=== PATIENT | female | born 1970 | race Caucasian/White ===

== ENCOUNTER 2025-01-03 01:01 | Day surgery (SDC) | payer OTHER, SELFPAY ==
[2024-12-26 10:47] VITALS: BMI 34.2
--- NOTE | 2024-12-26 10:54 | PC.NURSE ---
Report to the Outpatient Waiting Room, entrance under the green pavilion located off [facility], at time _0745__ on date _01/03/25_. Planned Procedure Time: _0945_.? Time changes happen often and if your time is changed the preop area will call you the afternoon before. - You and your visitor will be asked to self-screen and do not enter if you have any COVID symptoms. Please call surgeon if you need to reschedule. - A mask is optional within the hospital at this time. Patients may have clear liquids (water, carbonated beverages, clear teas, apple juice) until 3 hours prior to surgery with a maximum of 20 ounces. - No food from midnight until time of surgery and no smoking, or chewing tobacco (or any form of nicotine). No chewing gum, candy or mints. - Infants may have breast milk until 4 hours before surgery, infant formula 6 hours prior to surgery. - Children will be allowed to drink immediately following surgery.? If applicable, please bring a bottle or sippy cup to assist with drinking. Juice, water, soda, and popsicles are readily available.? For infants on formula, please bring formula the day of surgery.? Pacifiers are allowed. Take only the following medications with a SIP of water on the morning of surgery: ____NONE DO NOT STOP ANY OF YOUR OTHER PRESCRIPTION MEDICATIONS PRIOR TO SURGERY EXCEPT THE FOLLOWING Hold all vitamins and supplements for 3 days per anesthesiologist. Medications to discontinue per physician Date to take last dose Please no make-up, nail citizen of [place], hairspray, perfume, deodorant, or body powder the day of surgery.? No jewelry (including any body piercings) or valuables the day of surgery, leave them at home.? Please take a shower or bath the night before, or the morning of, surgery with an antibacterial soap.? Wear comfortable, loose fitting clothing.? Children are encouraged to wear pajamas. - Jewelry must be removed prior to entering the operating room.? Rings and piercings that are not removed may be cut off. - The hospital will not accept responsibility for valuables.? - Please leave all valuables, including medications, at home the day of surgery. If you are going home after surgery, a licensed pizza driver must drive you home.? - NO public transportation without another adult if you receive anesthesia. - We recommend that an adult stay with you for 24 hours following discharge. - We also recommend that you do not drive, make important decision, drink alcoholic beverages, or take any drugs that were not prescribed by your health care provider for at least 24 hours after your discharge time. For Pediatric surgeries, we recommend two adults accompany the child home. Follow any additional instructions given to you from your surgeon. Telephone instructions given to ___PATIENT__and asked if any additional questions and then verbalized understanding. Patient advised to call surgeon office or pre surgery nurse liaison [phone] if any additional questions.
--- NOTE | 2024-12-29 20:21 | P.HP_ITS ---
H&P: HPI History of Present Illness Date/Time: 12/29/24 20:21 Chief Complaint: incontinence Narrative: Mixed incontinence. ADÁN is main concern Review of Systems 2 Review of Systems: All systems reviewed & are unremarkable except as noted in HPI and below PMFSH Social History Social History Smoking status: Never smoker Drinks per week: 1 Substance use: never Living arrangements: alone Meds Home Medications and Allergies Home Medications ?Medication ?Instructions ?Recorded ?Confirmed ?Type No Home Medications 12/26/24 12/26/24 History Allergies Allergy/AdvReac Type Severity Reaction Status Date / Time No Known Allergies Allergy Verified 12/26/24 10:47 Exam Narrative: + urethral mobility Assessment and Plan Assessment and plan (1) ADÁN (stress urinary incontinence, female): Code(s): N39.3 - Stress incontinence (female) (male) Status: Acute Assessment and Plan: urethral sling
--- OUTSIDE RECORDS SUMMARY | 2025-01-03 01:05 | XMS_ITS | Continuity of Care Document ---
Author Name [facility] Organization [facility] Care Team Providers Care Weapons Mechanic Name Role Phone [facility] Unavailable Unavailable Problems Combined list of problems from Department of Defense and Veterans Affairs facilities. It does not include entries that were removed or entered in error. Problem Status Onset Date Problem Type Date of Resolution Comments Source Carpal tunnel syndrome of right wrist Active Condition [facility] Constipation (SCT 49167772) Active Condition [facility] Constipation (SNOMED CT 26126129) Active Condition [facility] Depression * (ICD-9-CM 300.4/311.) Active Condition [facility] Earache * (ICD-9-CM 388.70) Active Condition [facility] Family history of cancer Active Condition Aug 23, 2018 Entered By: MARCIA BARKLEY Comment: Mother, uterine cancer dx mid 40's [facility] Family history of diabetes mellitus type 2 Active Condition Aug 23, 2018 Entered By: MARCIA BARKLEY Comment: Mother, dx in 60's [facility] Herpes simplex Active Condition [facility] History of herpes zoster (SNOMED CT 659045191631413) Active Condition [facility] IUD change due (SNOMED CT 352248803) Active Condition [facility] Low Back Pain (SCT 450309844) Active Condition [facility] Low Back Pain * (ICD-9-CM 724.2) Active Condition [facility] Ovarian cyst Active Condition [facility] Ovarian Cyst (SCT 28905312) Active Condition Aug 22, 2018 Entered By: MARCIA BARKLEY Comment: left ovary, stable on US in JLV 2015 [facility] Pain in right hand (SNOMED CT 811394764250184) Active Condition [facility] Special Gynecological Examination (ICD-9-CM V72.3) Active Condition [facility] YEN Lisa [facility] Vitamin D deficiency Active Condition [facility] Vitamin D Deficiency ([facility] 7846141) Active Condition [facility] Weakness of right hand Active Condition [facility] Diagnosis: ICD-10-CM Z30.8 Encounter for other contraceptive management Active Diagnosis [facility] Diagnosis: ICD-10-CM Z02.9 Encounter for administrative examinations, unspecified Active Diagnosis [facility] Diagnosis: ICD-10-CM G47.33 Obstructive sleep apnea (adult) (pediatric) Active Diagnosis [facility] Diagnosis: ICD-10-CM M25.552 Pain in left hip Active Diagnosis [facility] Diagnosis: ICD-10-CM N39.46 Mixed incontinence Active Diagnosis [facility] WADE MARINELLI [facility] Diagnosis: ICD-10-CM Z01.419 Encntr for gynecology teacher exam (general) (routine) w/o abn findings Active Diagnosis [facility] Diagnosis: ICD-10-CM Z92.0 Personal history of contraception Active Diagnosis [facility] LYSSA [facility] Diagnosis: ICD-10-CM N91.2 Amenorrhea, unspecified Active Diagnosis [facility] Diagnosis: ICD-10-CM Z04.9 Encounter for examination and observation for unsp reason Active Diagnosis [facility] Medications Combined list of outpatient medications from Department of Defense and [facility] Affairs facilities.Medications provided include 1) outpatient medications from the last 15 months, and 2) patient-reported medications. Medication Details Route Status Patient Instructions Prescription Expires Prescription Number Last Dispense Date Ordering Provider Order Date Order Qty Source ATORVASTATI N CA 20MG TAB TAKE ONE-HALF TABLET BY MOUTH EVERY EVENING FOR HIGH CHOLESTE ROL ORAL ACTIVE 12/26/2025 [id number] 5 FARHAT SULLIVAN 2024 45 [facility] ATORVASTATI N CA 20MG TAB TAKE ONE-HALF TABLET BY MOUTH EVERY EVENING FOR HIGH CHOLESTE ROL ORAL DISCONT INUED BY PROVIDE R 02/21/2025 [id number] 4 FARHAT SULLIVAN 2023 45 [facility] DICLOFENAC NA 1% GEL,TOP APPLY 4 GM TO AFFECTED AREA(S) FOUR TIMES A DAY DO NOT EXCEED MORE THAN 16 GRAMS DAILY TO ANY LOWER EXTREMIT Y JOINT. NOT MORE THAN 8 GRAMS DAILY TO ANY UPPER EXTREMIT Y JOINT. MAX 32GM/DAY OVER ALL JOINTS. (MEASURE DOSE WITH RULER ATTACHED INSIDE BOX) PEÑAA L 05/19/2024 [id number] 4 LAURIE,IN GRID D 2023 100 [facility] VALACYCLOVI R HCL 500MG TAB TAKE ONE TABLET BY MOUTH ONCE A DAY ORAL ACTIVE 12/25/2025 [id number] 5 LAURIE,IN GRID D 2024 90 [facility] VALACYCLOVI R HCL 500MG TAB TAKE ONE TABLET BY MOUTH ONCE A DAY ORAL DISCONT INUED 02/16/2025 [id number] 4 LAURIE,IN GRID D 2023 90 [facility] VALACYCLOVI R HCL 500MG TAB TAKE ONE TABLET BY MOUTH ONCE A DAY ORAL DISCONT INUED 12/24/2023 [id number] 4 LAURIE,IN GRID D 2022 90 [facility] Immunizations Combined list of available immunizations from the Department of Defense and Veterans Affairs facilities. Immunization Series Date Given Administered By Site Reaction Lot Number CVX Code Drug Rig Builder Status Comments Source TDAP 1 2023 115 complet ed HISTORICA L INFORMATI ON - FROM OTHER [facility] SWETAIO N INFLUENZA, UNSPECIFIED FORMULATION 2022 88 complet ed HISTORICA L INFORMATI ON - SOURCE UNSPECIFI ED, [facility] COVID-19 (MODERNA), MRNA, LNP-S, PF, 100 MCG/0.5 ML DOSE 2 2020 207 complet ed MOD; [id number]; 1 [facility] COVID-19 (MODERNA), MRNA, LNP-S, PF, 100 MCG/0.5 ML DOSE 1 2020 207 complet ed MOD; [id number]; 1 [facility] TDAP 2016 115 complet ed Right Deltoid [facility] DTAP, UNSPECIFIED FORMULATION 2016 107 complet ed Given at the [facility] TD(ADULT) UNSPECIFIED FORMULATION 2006 139 complet ed Left Deltoid lot [id number] exp 11-22-07 [facility] Results Combined list of recent chemistry, hematology and other laboratory results from Department of Defense and Veterans Affairs, ranging from 15 months to all on record, depending upon the facility. Order Name Results Value Reference Range Date Interpretation Specimen Comments Source [facility] ([facility]) FOLLITROPIN [UNITS/VOLU ME] IN SERUM OR PLASMA 75.5 m[IU]/mL 12/24 Specimen Type: SERUM Comment: Unable to flag abnormal result(s), please refer to reference range(s) below: Adult female reference ranges for [facility]: Follicular Phase: 2.5-10.2 mIU/mL Mid-Cycle Peak: 3.1-17.7 mIU/mL Luteal Phase: 1.5-9.1 mIU/mL Postmenopau carlos: 23.0-116.3 mIU/mL Test Performed by [email or web address], [email or web address], [address] [place] [address] Gabriel London M.D., Ph.D., Director of Laboratorie s , CLIA [id number] Ordering Provider: LUCY SULLIVAN Report Released Date/Time: Dec 24, 2024 09:26 AM Reporting Lab: [facility] [address] [facility] [address] Performing Lab: [facility] [address] [place] [address] [facility] LIPID PANEL (STL) CHOLESTEROL [MASS/VOLUM E] IN SERUM OR PLASMA 229 mg/dL 0 - 200 12/24 H Specimen Type: PLASMA No comment entered. Ordering Provider: LUCY SULLIVAN Report Released Date/Time: Dec 24, 2024 09:26 AM Reporting Lab: [facility] [address] [facility] [address] Performing Lab: [facility] [address] [facility] [address] [facility] LIPID PANEL (STL) TRIGLYCERID E [MASS/VOLUM E] IN SERUM OR PLASMA 97 mg/dL 0 - 150 12/24 Specimen Type: PLASMA No comment entered. Ordering Provider: LUCY SULLIVAN Report Released Date/Time: Dec 24, 2024 09:26 AM Reporting Lab: [facility] [address] [place] [phone] Performing Lab: [address] [address] [facility] LIPID PANEL (STL) CHOLESTEROL IN LDL [MASS/VOLUM E] IN SERUM OR PLASMA BY CALCULATION 137 mg/dL 12/24 Specimen Type: PLASMA No comment entered. Ordering Provider: LUCY SULLIVAN Report Released Date/Time: Dec 24, 2024 09:26 AM Reporting Lab: [facility] [address] [place] [phone] Performing Lab: [address] [address] [facility] LIPID PANEL (STL) CHOLESTEROL IN HDL [MASS/VOLUM E] IN SERUM OR PLASMA 73 mg/dL 40 12/24 Specimen Type: PLASMA No comment entered. Ordering Provider: LUCY SULLIVAN Report Released Date/Time: Dec 24, 2024 09:26 AM Reporting Lab: [facility] [address] [place] [phone] Performing Lab: [facility] [address] [place] [phone] [facility] COMPREHEN SIVE METABOLIC PANEL CREATININE [MASS/VOLUM E] IN SERUM OR PLASMA 0.97 mg/dL 0.6 - 1.1 12/24 Specimen Type: PLASMA No comment entered. Ordering Provider: LUCY SULLIVAN Report Released Date/Time: Dec 24, 2024 09:26 AM Reporting Lab: [facility] [address] [place] [phone] Performing Lab: [facility] [address] [facility] [address] [facility] COMPREHEN SIVE METABOLIC PANEL UREA NITROGEN [MASS/VOLUM E] IN SERUM OR PLASMA 18.3 mg/dL 9.0 - 25.0 12/24 Specimen Type: PLASMA No comment entered. Ordering Provider: LUCY SULLIVAN Report Released Date/Time: Dec 24, 2024 09:26 AM Reporting Lab: [facility] [address] [facility] [address] Performing Lab: [place] [address] [facility] [address] [facility] COMPREHEN SIVE METABOLIC PANEL GLUCOSE [MASS/VOLUM E] IN SERUM OR PLASMA 81 mg/dL 72 - 99 12/24 Specimen Type: PLASMA No comment entered. Ordering Provider: LUCY SULLIVAN Report Released Date/Time: Dec 24, 2024 09:26 AM Reporting Lab: [facility] [address] [facility] [address] Performing Lab: [facility] [address] [facility] [address] [facility] COMPREHEN SIVE METABOLIC PANEL SODIUM [MOLES/VOLU ME] IN SERUM OR PLASMA 139 meq/L 136 - 145 12/24 Specimen Type: PLASMA No comment entered. Ordering Provider: LUCY SULLIVAN Report Released Date/Time: Dec 24, 2024 09:26 AM Reporting Lab: [facility] [address] [facility] [address] Performing Lab: [facility] [address] [facility] [address] [facility] COMPREHEN SIVE METABOLIC PANEL POTASSIUM [MOLES/VOLU ME] IN SERUM OR PLASMA 4.3 meq/L 3.5 - 5 12/24 Specimen Type: PLASMA No comment entered. Ordering Provider: LUCY SULLIVAN Report Released Date/Time: Dec 24, 2024 09:26 AM Reporting Lab: [facility] [address] [facility] [address] Performing Lab: [facility] [address] [facility] [address] [facility] COMPREHEN SIVE METABOLIC PANEL CHLORIDE [MOLES/VOLU ME] IN SERUM OR PLASMA 105 meq/L 98 - 107 12/24 Specimen Type: PLASMA No comment entered. Ordering Provider: LUCY SULLIVAN Report Released Date/Time: Dec 24, 2024 09:26 AM Reporting Lab: [facility] [address] [place] [phone] Performing Lab: [address] [address] [facility] COMPREHEN SIVE METABOLIC PANEL CARBON DIOXIDE, TOTAL [MOLES/VOLU ME] IN SERUM OR PLASMA 25 meq/L 22 - 31 12/24 Specimen Type: PLASMA No comment entered. Ordering Provider: LUCY SULLIVAN Report Released Date/Time: Dec 24, 2024 09:26 AM Reporting Lab: [facility] [address] [place] [phone] Performing Lab: [address] [address] [facility] COMPREHEN SIVE METABOLIC PANEL CALCIUM [MASS/VOLUM E] IN SERUM OR PLASMA 9.4 mg/dL 8.4 - 10.4 12/24 Specimen Type: PLASMA No comment entered. Ordering Provider: LUCY SULLIVAN Report Released Date/Time: Dec 24, 2024 09:26 AM Reporting Lab: [facility] [address] [place] [phone] Performing Lab: [address] [address] [facility] COMPREHEN SIVE METABOLIC PANEL PROTEIN [MASS/VOLUM E] IN SERUM OR PLASMA 7.6 g/dL 6 - 8.6 12/24 Specimen Type: PLASMA No comment entered. Ordering Provider: LUCY SULLIVAN Report Released Date/Time: Dec 24, 2024 09:26 AM Reporting Lab: [facility] [address] [facility] [address] Performing Lab: [facility] [address] [facility] [address] [facility] COMPREHEN SIVE METABOLIC PANEL ALBUMIN [MASS/VOLUM E] IN SERUM OR PLASMA 4.3 g/dL 3.4 - 5 12/24 Specimen Type: PLASMA No comment entered. Ordering Provider: LUCY SULLIVAN Report Released Date/Time: Dec 24, 2024 09:26 AM Reporting Lab: [facility] [address] [facility] [address] Performing Lab: [place] [address] [facility] [address] [facility] COMPREHEN SIVE METABOLIC PANEL BILIRUBIN.T OTAL [MASS/VOLUM E] IN SERUM OR PLASMA 0.4 mg/dL 0.2 - 1.2 12/24 Specimen Type: PLASMA No comment entered. Ordering Provider: LUCY SULLIVAN Report Released Date/Time: Dec 24, 2024 09:26 AM Reporting Lab: [facility] [address] [facility] [address] Performing Lab: [place] [address] [facility] [address] [facility] COMPREHEN SIVE METABOLIC PANEL ALKALINE PHOSPHATASE [ENZYMATIC ACTIVITY/VO LUME] IN SERUM OR PLASMA 74 U/L 40 - 150 12/24 Specimen Type: PLASMA No comment entered. Ordering Provider: LUCY SULLIVAN Report Released Date/Time: Dec 24, 2024 09:26 AM Reporting Lab: [facility] [address] [facility] [address] Performing Lab: [facility] [address] [place] [address] [facility] COMPREHEN SIVE METABOLIC PANEL ASPARTATE AMINOTRANSF ERASE [ENZYMATIC ACTIVITY/VO LUME] IN SERUM OR PLASMA 22 U/L 5 - 34 12/24 Specimen Type: PLASMA No comment entered. Ordering Provider: LUCY SULLIVAN Report Released Date/Time: Dec 24, 2024 09:26 AM Reporting Lab: [facility] [address] [facility] [address] Performing Lab: [facility] [address] [place] [address] [phone] [place] [address] COMPREHEN SIVE METABOLIC PANEL ALANINE AMINOTRANSF ERASE [ENZYMATIC ACTIVITY/VO LUME] IN SERUM OR PLASMA 17 U/L 8 - 40 12/24 Specimen Type: PLASMA No comment entered. Ordering Provider: LUCY SULLIVAN Report Released Date/Time: Dec 24, 2024 09:26 AM Reporting Lab: [facility] [address] [place] [phone] Performing Lab: [place] [address] [facility] [phone] [place] [address] COMPREHEN SIVE METABOLIC PANEL GLOMERULAR FILTRATION RATE/1.73 SQ M.PREDICTED [VOLUME RATE/AREA] IN SERUM, PLASMA OR BLOOD BY CREATININE- BASED FORMULA (CKD-EPI 2020) 69.9 60 12/24 Specimen Type: PLASMA No comment entered. Ordering Provider: LUCY SULLIVAN Report Released Date/Time: Dec 24, 2024 09:26 AM Reporting Lab: [facility] [address] [place] [phone] Performing Lab: [address] [phone] [place] [address] ESTRADIOL ESTRADIOL (E2) [MASS/VOLUM E] IN SERUM OR PLASMA 68 pg/mL 12/24 Specimen Type: SERUM Comment: Unable to flag abnormal result(s), please refer to reference range(s) below: Females: Follicular Phase: 19 - 144 pg/mL Mid-Cycle: 64 - 357 pg/mL Luteal Phase: 56 - 214 pg/mL Post-Menopa usal: <= 31 pg/mL Reference range established on post-pubert al patient population. No pre-puberta l reference range established using this assay. For any patients for whom low Estradiol levels are anticipated (e.g. males, pre-puberta l children, and hypogonadal /post-menop ausal females), the [facility] Estradiol, Ultrasensit sherie, LCMSMS assay is recommended (order code [id number]). Please note: Patients being treated with the drug fulvestrant [Faslodex(R )] have demonstrate d significant interferenc e in immunoassay methods for estradiol measurement . The cross reactivity could lead to falsely elevated estradiol test results leading to an inappropria te clinical assessment of estrogen status. Fundera order code [id number] diol, Ultrasensit sherie LC/MS/MS demonstrate s negligible cross reactivity with fulvestrant . Test Performed by [facility], [facility], [address] [place] [address] Gabriel London M.D., Ph.D., Director of Laboratorie s , CLIA [id number] Ordering Provider: LUCY SULLIVAN Report Released Date/Time: Dec 24, 2024 09:26 AM Reporting Lab: [facility] [address] [facility] [address] Performing Lab: [facility] [id number] [place] [address] [facility] TSH W/ REFLEX FT4 (STL) THYROTROPIN [UNITS/VOLU ME] IN SERUM OR PLASMA 0.934 u[IU]/mL 0.47 - 5 07/10 Specimen Type: PLASMA No comment entered. Ordering Provider: LUCY SULLIVAN Report Released Date/Time: Jul 10, 2024 08:59 AM Reporting Lab: [facility] [address] [facility] [address] Performing Lab: [facility] [address] [facility] [address] [facility] LIPID PANEL (STL) CHOLESTEROL [MASS/VOLUM E] IN SERUM OR PLASMA 218 mg/dL 0 - 200 07/10 H Specimen Type: PLASMA Comment: No hemolysis noted. Ordering Provider: LUCY SULLIVAN Report Released Date/Time: Jul 10, 2024 08:59 AM Reporting Lab: [facility] [address] [facility] [address] Performing Lab: [facility] [address] [facility] [address] [facility] LIPID PANEL (STL) TRIGLYCERID E [MASS/VOLUM E] IN SERUM OR PLASMA 72 mg/dL 0 - 150 07/10 Specimen Type: PLASMA Comment: No hemolysis noted. Ordering Provider: LUCY SULLIVAN Report Released Date/Time: Jul 10, 2024 08:59 AM Reporting Lab: [facility] [address] [facility] [address] Performing Lab: [facility] [address] [place] [address] [facility] LIPID PANEL (STL) CHOLESTEROL IN LDL [MASS/VOLUM E] IN SERUM OR PLASMA BY CALCULATION 139 mg/dL 07/10 Specimen Type: PLASMA Comment: No hemolysis noted. Ordering Provider: LUCY SULILVAN Report Released Date/Time: Jul 10, 2024 08:59 AM Reporting Lab: [facility] [address] [facility] [address] Performing Lab: [facility] [address] [place] [address] [facility] LIPID PANEL (STL) CHOLESTEROL IN HDL [MASS/VOLUM E] IN SERUM OR PLASMA 65 mg/dL 40 07/10 Specimen Type: PLASMA Comment: No hemolysis noted. Ordering Provider: LUCY SULLIVAN Report Released Date/Time: Jul 10, 2024 08:59 AM Reporting Lab: [facility] [address] [facility] [address] Performing Lab: [facility] [address] [facility] [address] [facility] COMPREHEN SIVE METABOLIC PANEL CREATININE [MASS/VOLUM E] IN SERUM OR PLASMA 0.97 mg/dL 0.6 - 1.1 07/10 Specimen Type: PLASMA Comment: No hemolysis noted. Ordering Provider: LUCY SULLIVAN Report Released Date/Time: Jul 10, 2024 08:59 AM Reporting Lab: [facility] [address] [facility] [address] Performing Lab: [facility] [address] [facility] [address] [facility] COMPREHEN SIVE METABOLIC PANEL UREA NITROGEN [MASS/VOLUM E] IN SERUM OR PLASMA 17.6 mg/dL 9.0 - 25.0 07/10 Specimen Type: PLASMA Comment: No hemolysis noted. Ordering Provider: LUCY SULLIVAN Report Released Date/Time: Jul 10, 2024 08:59 AM Reporting Lab: [facility] [address] [facility] [address] Performing Lab: [facility] [address] [place] [address] [facility] COMPREHEN SIVE METABOLIC PANEL GLUCOSE [MASS/VOLUM E] IN SERUM OR PLASMA 78 mg/dL 72 - 99 07/10 Specimen Type: PLASMA Comment: No hemolysis noted. Ordering Provider: LUCY SULLIVAN Report Released Date/Time: Jul 10, 2024 08:59 AM Reporting Lab: [facility] [address] [place] [phone] Performing Lab: [facility] [address] [place] [address] [facility] COMPREHEN SIVE METABOLIC PANEL SODIUM [MOLES/VOLU ME] IN SERUM OR PLASMA 140 meq/L 136 - 145 07/10 Specimen Type: PLASMA Comment: No hemolysis noted. Ordering Provider: LUCY SULLIVAN Report Released Date/Time: Jul 10, 2024 08:59 AM Reporting Lab: [facility] [address] [place] [phone] Performing Lab: [facility] [address] [place] [address] [facility] COMPREHEN SIVE METABOLIC PANEL POTASSIUM [MOLES/VOLU ME] IN SERUM OR PLASMA 4.2 meq/L 3.5 - 5 07/10 Specimen Type: PLASMA Comment: No hemolysis noted. Ordering Provider: LUCY SULLIVAN Report Released Date/Time: Jul 10, 2024 08:59 AM Reporting Lab: [facility] [address] [facility] [address] Performing Lab: [facility] [address] [facility] [address] [facility] COMPREHEN SIVE METABOLIC PANEL CHLORIDE [MOLES/VOLU ME] IN SERUM OR PLASMA 107 meq/L 98 - 107 07/10 Specimen Type: PLASMA Comment: No hemolysis noted. Ordering Provider: LUCY SULLIVAN Report Released Date/Time: Jul 10, 2024 08:59 AM Reporting Lab: [facility] [address] [facility] [address] Performing Lab: [facility] [address] [place] [id number] [facility] COMPREHEN SIVE METABOLIC PANEL CARBON DIOXIDE, TOTAL [MOLES/VOLU ME] IN SERUM OR PLASMA 25 meq/L 22 - 31 07/10 Specimen Type: PLASMA Comment: No hemolysis noted. Ordering Provider: LUCY SULLIVAN Report Released Date/Time: Jul 10, 2024 08:59 AM Reporting Lab: [facility] [address] [facility] [id number] Performing Lab: [facility] [address] [facility] [address] [facility] COMPREHEN SIVE METABOLIC PANEL CALCIUM [MASS/VOLUM E] IN SERUM OR PLASMA 9.1 mg/dL 8.4 - 10.4 07/10 Specimen Type: PLASMA Comment: No hemolysis noted. Ordering Provider: LUCY SULLIVAN Report Released Date/Time: Jul 10, 2024 08:59 AM Reporting Lab: [facility] [address] [facility] [address] Performing Lab: [facility] [address] [place] [phone] [facility] COMPREHEN SIVE METABOLIC PANEL PROTEIN [MASS/VOLUM E] IN SERUM OR PLASMA 7.4 g/dL 6 - 8.6 07/10 Specimen Type: PLASMA Comment: No hemolysis noted. Ordering Provider: LUCY SULLIVAN Report Released Date/Time: Jul 10, 2024 08:59 AM Reporting Lab: [facility] [address] [facility] [address] Performing Lab: [facility] [address] [facility] [address] [facility] COMPREHEN SIVE METABOLIC PANEL ALBUMIN [MASS/VOLUM E] IN SERUM OR PLASMA 4.1 g/dL 3.4 - 5 07/10 Specimen Type: PLASMA Comment: No hemolysis noted. Ordering Provider: LUCY SULLIVAN Report Released Date/Time: Jul 10, 2024 08:59 AM Reporting Lab: [facility] [address] [place] [phone] Performing Lab: [facility] [address] [place] [address] [facility] COMPREHEN SIVE METABOLIC PANEL BILIRUBIN.T OTAL [MASS/VOLUM E] IN SERUM OR PLASMA 0.4 mg/dL 0.2 - 1.2 07/10 Specimen Type: PLASMA Comment: No hemolysis noted. Ordering Provider: LUCY SULLIVAN Report Released Date/Time: Jul 10, 2024 08:59 AM Reporting Lab: [facility] [address] [place] [phone] Performing Lab: [facility] [address] [facility] [address] [facility] COMPREHEN SIVE METABOLIC PANEL ALKALINE PHOSPHATASE [ENZYMATIC ACTIVITY/VO LUME] IN SERUM OR PLASMA 70 U/L 40 - 150 07/10 Specimen Type: PLASMA Comment: No hemolysis noted. Ordering Provider: LUCY SULLIVAN Report Released Date/Time: Jul 10, 2024 08:59 AM Reporting Lab: [facility] [address] [facility] [address] Performing Lab: [facility] [address] [place] [phone] [facility] COMPREHEN SIVE METABOLIC PANEL ASPARTATE AMINOTRANSF ERASE [ENZYMATIC ACTIVITY/VO LUME] IN SERUM OR PLASMA 25 U/L 5 - 34 07/10 Specimen Type: PLASMA Comment: No hemolysis noted. Ordering Provider: LUCY SULLIVAN Report Released Date/Time: Jul 10, 2024 08:59 AM Reporting Lab: [facility] [address] [facility] [address] Performing Lab: [facility] [address] [facility] [address] [facility] COMPREHEN SIVE METABOLIC PANEL ALANINE AMINOTRANSF ERASE [ENZYMATIC ACTIVITY/VO LUME] IN SERUM OR PLASMA 19 U/L 8 - 40 07/10 Specimen Type: PLASMA Comment: No hemolysis noted. Ordering Provider: LUCY SULLIVAN Report Released Date/Time: Jul 10, 2024 08:59 AM Reporting Lab: [facility] [address] [facility] [address] Performing Lab: [address] [address] [facility] COMPREHEN SIVE METABOLIC PANEL GLOMERULAR FILTRATION RATE/1.73 SQ M.PREDICTED [VOLUME RATE/AREA] IN SERUM, PLASMA OR BLOOD BY CREATININE- BASED FORMULA (CKD-EPI 2020) 69.9 60 07/10 Specimen Type: PLASMA Comment: No hemolysis noted. Ordering Provider: LUCY SULLIVAN Report Released Date/Time: Jul 10, 2024 08:59 AM Reporting Lab: [facility] [address] Performing Lab: [place] [address] [facility] [address] [facility] FSH (STL-MA) FOLLITROPIN [MOLES/VOLU ME] IN SERUM OR PLASMA 41.9 m[IU]/mL 02/18 Specimen Type: SERUM Comment: Unable to flag abnormal result(s), please refer to reference range(s) below: Adult female reference ranges for FSH: Follicular Phase: 2.5-10.2 mIU/mL Mid-Cycle Peak: 3.1-17.7 mIU/mL Luteal Phase: 1.5-9.1 mIU/mL Postmenopau carlos: 23.0-116.3 mIU/mL Ordering Provider: LUCY SULLIVAN Report Released Date/Time: Feb 19, 2024 12:59 PM Reporting Lab: [facility] [address] [facility] [address] Performing Lab: [facility] [id number] [place] [address] [facility] HEP HB S Ag (AUSRIA) (STL) HEPATITIS B VIRUS SURFACE AG [PRESENCE] IN SERUM OR PLASMA BY IMMUNOASSAY Nonreact sherie 02/18 Specimen Type: SERUM No comment entered. Ordering Provider: LUCY SULLIVAN Report Released Date/Time: Feb 19, 2024 01:36 PM Reporting Lab: [facility] [address] [place] [phone] Performing Lab: [address] [phone] [place] [address] HEPATITIS B SURFACE AB PNL HEPATITIS B VIRUS SURFACE AB [PRESENCE] IN SERUM BY IMMUNOASSAY Nonreact ivem[IU] /mL 02/18 Specimen Type: SERUM No comment entered. Ordering Provider: LUCY SULLIVAN Report Released Date/Time: Feb 19, 2024 01:36 PM Reporting Lab: [facility] [address] [facility] [address] Performing Lab: [address] [phone] [place] [address] Vital Signs Combined list of inpatient and outpatient Vital Signs from Department of Defense and Veterans Affairs, ranging from 12 months to all on record, depending upon the facility. Vital Sign Value Date Comments Source SYSTOLIC BLOOD PRESSURE 118 12/24/2024 08:45:32 [facility] DIASTOLIC BLOOD PRESSURE 79 12/24/2024 08:45:32 [facility] PULSE OXIMETRY 97 12/24/2024 08:45:32 [facility] WEIGHT 234.4 12/24/2024 08:45:32 [facility] BMI 35 kg/m2 12/24/2024 08:45:32 [facility] PAIN 0 12/24/2024 08:45:32 [facility] AUDREYR [facility] TEMPERATURE 97.4 12/24/2024 08:45:32 [facility] JUAN MANUEL [facility] PULSE 77 12/24/2024 08:45:32 [facility] RESPIRATION 18 12/24/2024 08:45:32 [facility] JUAN MANUEL [facility] SYSTOLIC BLOOD PRESSURE 127 08/08/2024 07:57:59 [facility] DIASTOLIC BLOOD PRESSURE 80 08/08/2024 07:57:[address] [facility] [facility] PULSE OXIMETRY 97 08/08/2024 07:57:59 S Fariha DELA CRUZ [facility] WEIGHT 234.1 08/08/2024 07:57:59 [facility] Tobias [facility] BMI 35 kg/m2 08/08/2024 07:57:59 [facility] Tobias [facility] PAIN 0 08/08/2024 07:57:59 [facility] Tobias [facility] HEIGHT 69 08/08/2024 07:57:59 [facility] Tobias [facility] TEMPERATURE 97.8 08/08/2024 07:57:[address] [facility] [facility] PULSE 86 08/08/2024 07:57:59 [facility] Tobias [facility] RESPIRATION 18 08/08/2024 07:57:59 [facility] SYSTOLIC BLOOD PRESSURE 126 07/10/2024 08:27:22 [facility] JUAN MANUEL [facility] DIASTOLIC BLOOD PRESSURE 82 07/10/2024 08:27:22 [facility] JUAN MANUEL [facility] PULSE OXIMETRY 96 07/10/2024 08:27:22 S T. JUAN MANUEL [facility] WEIGHT 234 07/10/2024 08:27:22 [facility] BMI 37 kg/m2 07/10/2024 08:27:22 [facility] AUDREYR [facility] PAIN 0 07/10/2024 08:27:22 [facility] TEMPERATURE 97.7 07/10/2024 08:27:22 [facility] JUAN MANUEL [facility] PULSE 69 07/10/2024 08:27:22 [facility] Diony HERRON [facility] RESPIRATION 18 07/10/2024 08:27:22 STKimberly ZAMBRANO [facility] SYSTOLIC BLOOD PRESSURE 130 02/19/2024 12:36:01 STKimberly ZAMBRANO [facility] DIASTOLIC BLOOD PRESSURE 85 02/19/2024 12:36:01 STKimberly ZAMBRANO [facility] PULSE OXIMETRY 98 02/19/2024 12:36:01 S Fariha ZAMBRANO [facility] WEIGHT 229 02/19/2024 12:36:01 ST. Diony HERRON [facility] BMI 36 kg/m2 02/19/2024 12:36:01 [facility] PAIN 3 02/19/2024 12:36:01 [facility]. Diony HERRON [facility] HEIGHT 67 02/19/2024 12:36:01 ST. Diony HERRON [facility] TEMPERATURE 97.9 02/19/2024 12:36:01 STKimberly ZAMBRANO [facility] PULSE 67 02/19/2024 12:36:01 ST. Diony HERRON [facility] RESPIRATION 18 02/19/2024 12:36:01 STKimberly ZAMBRANO [facility] Encounters Combined list of: 1) Encounters from Department of Veterans Affairs facilities going backup to the last 18 months, not all VA inpatient encounters are included; 2) Encounters from the Department of Defense facilities going backup to 280 months. Location Location Details Encounter Type Encounter Number Reason For Visit Attending Provider ADM Date DC Date Status Disposition Source [facility] Outpatient Encounter [id number] 10/14 [facility] Outpatient Encounter [id number] 10/15 [facility] Outpatient Encounter [id number] KAREN SULLIVAN RID 10/18 [facility] Outpatient Encounter [id number] 01/01 [facility] Outpatient Encounter [id number] 02/04 [facility] OFFICE O/P EST MOD 30 MIN [id number] Diagnos is: ICD-10- CM M25.552 Pain in left hip KAREN SULLIVAN RID D 02/18 [facility] Outpatient Encounter [id number] 02/18 [facility] Outpatient Encounter [id number] 04/16 [facility] HC PRO PHONE CALL 21-30 MIN [id number] Diagnos is: ICD-10- CM Z04.9 Encount er for examina tion and observa tion for unsp reason MAYDEN,CHR ISTINE M 04/23 [facility] OFF/OP EST NOVEMBER X REQ PHY/QHP [id number] Diagnos is: ICD-10- CM N91.2 Amenorr hea, unspeci fied MELISSA OLVERA W 04/25 [facility] Outpatient Encounter [id number] CATHERINE BRADY L 04/30 [facility] Outpatient Encounter [id number] Diagnos is: ICD-10- CM Z92.0 Persona l history of contrac eption KAREN SULLIVAN RID D 05/03 [facility] OFFICE O/P EST MOD 30 MIN [id number] Diagnos is: ICD-10- CM Z01.419 Encntr for gynecology teacher exam (genera l) (routin e) w/o abn finding s KAREN SULLIVAN RID D 07/10 [facility] Outpatient Encounter [id number] PETE SAL 07/[address] [facility] PT EVAL LOW COMPLEX 20 MIN [id number] Diagnos is: ICD-10- CM M25.552 Pain in left hip RAYHEL,HUSSEIN RY 08/[address] [facility] OFFICE O/P NEW LOW 30 MIN [id number] Diagnos is: ICD-10- CM N39.46 Mixed inconti SHOBHA Bray MA E 08/08 [facility] Outpatient Encounter [id number] DIANNA FIERRO M 08/09 [facility] Outpatient Encounter [id number] 08/16 [facility] THERAPEUTI C EXERCISES [id number] Diagnos is: ICD-10- CM M25.552 Pain in left hip RAYHEL,HUSSEIN RY 08/[address] [facility] Outpatient Encounter [id number] 09/06 [facility] THERAPEUTI C EXERCISES [id number] Diagnos is: ICD-10- CM M25.552 Pain in left hip RAYHEL,HUSSEIN RY 09/06 [facility] Outpatient Encounter [id number] 09/18 [facility] Outpatient Encounter [id number] 09/[address] [facility] THERAPEUTI C EXERCISES [id number] Diagnos is: ICD-10- CM M25.552 Pain in left hip RAYBHARATI,HUSSEIN RY 09/23 [facility] Outpatient Encounter [id number] 10/09 [facility] THERAPEUTI C EXERCISES [id number] Diagnos is: ICD-10- CM M25.552 Pain in left hip RAYBHARATI,HUSSEIN RY 10/09 [facility] POS AIRWAY PRESSURE CPAP [id number] Diagnos is: ICD-10- CM G47.33 Obstruc tive sleep apnea (adult) (pediat sulaiman) CHRISTY RAVI MD 10/21 [facility] Outpatient Encounter [id number] 11/04 [facility] Outpatient Encounter [id number] 11/15 [facility] Outpatient Encounter [id number] 11/18 [facility] PH1 ASSMT&MGMT NQHP 21-30 [id number] Diagnos is: ICD-10- CM Z02.9 Encount er for adminis trative examina tions, unspeci fiCHICO Blount NNIFER A 11/[address] [facility] Outpatient Encounter [id number] 12/18 [facility] OFFICE O/P EST MOD 30 MIN [id number] Diagnos is: ICD-10- CM Z30.8 Encount er for other contrac eptive managem ent KAREN SULLIVAN RID 12/24 [facility] Social History Combined list of available smoking, tobacco, and other social history from Department of Defense and Veterans Affairs facilities. Social History Type Response Date Comment Sour e Tobacco smoking status NHIS RI-TOBACCO NEVER USED 02/19/2024 [facility] History of tobacco use RI-TOBACCO NEVER USED 12/14/2021 [facility] History of tobacco use VA-TOBACCO NEVER USED 02/18/2021 [facility] History of tobacco use RI-TOBACCO NEVER USED 01/31/2020 [facility]2018 [facility] History of tobacco use LIFETIME NON-USER OF TOBACCO 10/14/2016 [facility] History of tobacco use LIFETIME NON-USER OF TOBACCO 08/20/2015 [facility] History of tobacco use LIFETIME NON-USER OF TOBACCO 09/23/2014 [facility] History of tobacco use LIFETIME NON-USER OF TOBACCO 10/01/2013 [facility] History of tobacco use LIFETIME NON-USER OF TOBACCO 01/15/2007 [facility] History of tobacco use LIFETIME NON-TOBA FOLDER SEAMER USER 10/05/2004 [facility] History of tobacco use LIFETIME NON-TOBA FOLDER SEAMER USER 09/28/2004 [facility] History of tobacco use LIFETIME NON-TOBA FOLDER SEAMER USER 10/07/2003 [facility] History of tobacco use LIFETIME NON-TOBA FOLDER SEAMER USER 09/11/2002 [facility] History of tobacco use LIFETIME NON-TOBA FOLDER SEAMER USER 09/12/2001 [facility] Plan of Care List of future care activities from [facility] facilities. Additional future care activities may be listed in the Assessment and Plan section. Date/Time Care Activity Care Activity Detail Facili ty 01/31/2025 AMBULATORY - MEDICINE AMBULATORY - MEDICI [facility] Advance Directives List of completed, amended, or rescinded Advance Directives on record at [facility] facilities. An actual copy of the Directive is not included. Date Advance Directive Provider Source 10/01/2013 ADVANCE DIRECTIVE DISCUSSION TEETEE CARDENAS [facility]
--- OUTSIDE RECORDS SUMMARY | 2025-01-03 01:05 | XMS_ITS | Encounter Summary ---
Author Name [facility] Organization [facility] Address [address] [place] [address] Care Team Providers Care Consumer Insights Intern Name Role Phone MARCIA BARKLEY Primary Care Provider KEENA Estes Primary Care Provider Danilo echeverria Insurance Providers: All historical and current Section Date Range: From patient's date of to the date document was created. This section includes the names of all active insurance providers for the patient. Insurance Provider Type of Coverage Plan Name Start of Policy Coverage End of Policy Coverage Group Number Member ID Insurance Provider's Telephone Number Policy Joy's Name Patient's Relationship to Policy Joy [facility] May 30, 1998 [id number] PATIENT Selected Encounter This section includes the information on record at [place] for the Encounter. Date/Time Encounter Type Encounter Description Reason Provider Source Aug 09, 2024 10:55 AM Outpatient Encounter GENERAL INTERNAL MEDICINE YARY FIERRO [place] Encounter Template Text not used by [place] Plan of Treatment: Future Appointments (+ 6 months) and Future Tests (+/- 45 days) The Plan of Treatment section includes future care activities for the patient from all [place] treatmentfacilities. This section includes future appointments and future orders which are active, pending or scheduled. Future Appointments This section includes appointments that were scheduled to occur 6 months from the date of the Encounter, up to a maximum of 20 appointments. The data comes from all [facility]. Appointment Date/Time Appointment Type Appointme nt Facility Name Aug 16, 2024 09:30 AM AMBULATORY - REHAB MEDICIN E [facility] Sep 06, 2024 09:00 AM AMBULATORY - REHAB MEDICIN E [facility] Sep 23, 2024 12:00 PM AMBULATORY - REHAB MEDICIN E [facility] Oct 04, 2024 04:00 PM AMBULATORY - MEDICINE [facility] Oct 09, 2024 12:00 PM AMBULATORY - REHAB MEDICIN E [facility] November 28, 2024 10:00 AM AMBULATORY - MEDICINE [facility] December 02, 2024 08:15 AM AMBULATORY - SURGERY [facility] Dec 24, 2024 09:00 AM AMBULATORY - MEDICINE [facility] Jan 31, 2025 01:30 PM AMBULATORY - MEDICINE [facility] Active, Pending, and Scheduled Orders This section includes a listing of several types of active, pending, and scheduled orders, including clinic medications orders, diagnostic test orders, procedure orders and consult orders; where thestart date of the order is 45 days before the date of the Encounter or 45 days after the date of the Encounter. The data comes from all [facility]. Test Date/Time Test Type Test Details Facility Name Jul 10, 2024 12:00 AM Laboratory - Microbiology Order C&S URINE URINE,CLEAN CATCH [facility] Jul 10, 2024 12:00 AM Laboratory - Chemi stry Order URINALYSIS (STL-PB) URINE SP [facility] Jul 10, 2024 12:00 AM Laboratory - Chemi stry Order FSH (STL-MA) GOLD/RED SST SERUM SP [facility] Jul 10, 2024 12:00 AM Laboratory - Chemi stry Order ESTRADIOL GOLD/RED SST SERUM [facility] Social History: Smoking Status (Most current) and Tobacco Use (All prior to encounter date) This section includes the most current, and the historical, smoking and tobacco- related health factors from the [place] facility where the Encounter took place. Current Smoking Status This section includes the most current smoking, or tobacco-related health factor, from the [place] facility where the Encounter took place. Date/Time Current Smoking Status Comment Ning nolasco Aug 20, 2015 09:08 AM LIFETIME NON-USER OF TOBACCO [facility] Tobacco Use History This section includes a history of the smoking, or tobacco-related health factors, that were collected on or before the date of the Encounter. The data comes from the [place] facility where the Encounter took place. Date/Time Smoking Status/Tobacco Use Comment F acility Sep 23, 2014 10:59 AM LIFETIME NON-USER OF TOBACCO [facility] Oct 01, 2013 10:13 AM LIFETIME NON-USER OF TOBACCO [facility] Jan 15, 2007 07:52 AM LIFETIME NON-USER OF TOBACCO [facility] Oct 05, 2004 09:01 AM LIFETIME NON-TOBACCO USER [facility] Sep 28, 2004 09:14 AM LIFETIME NON-TOBACCO USER [facility] Oct 07, 2003 08:54 AM LIFETIME NON-TOBACCO USER [facility] Sep 11, 2002 09:23 AM LIFETIME NON-TOBACCO USER [facility] Sep 12, 2001 08:36 AM LIFETIME NON-TOBACCO USER [facility] Advance Directives: All historical and current Section Date Range: From patient's date of to the date document was created. This section includes ALL of a patient's completed or amended [place] Advance and Rescinded Directives. The entries below indicate that a directive exists for the patient, but an actual copy is not included with this document. The data comes from all [facility]. Date Advance Directives Provider Source Oct 01, 2013 ADVANCE DIRECTIVE DISCUSSION TEETEE CARDENAS [facility] Pathology Reports: +/- 30 days of the encounter Pathology Reports For cases when an order for pathology services may have been completed prior to the date of the Encounter, the report list includes the Pathology Reports that were completed up to 30 days before dateof the Encounter. For cases when an order for pathology services may have been completed after the date of the Encounter, the report list also includes the Pathology Reports that were completed up to30 days after date of the Encounter. The data comes from all [place] treatment facilities. Date/Time Pathology Report Provider Source Jul 18, 2024 02:53 PM LR CYTOPATHOLOGY R EPORT: LOCAL TITLE: LR CYTOPATHOLOGY REPORT STANDARD TITLE: PATHOLOGY PROCEDURE NOTE DATE OF NOTE: JUL 18, 2024@14:53:17 ENTRY DATE: JUL 18, 2024@14:53:17 AUTHOR: CODIE SAL EXP COSIGNER: URGENCY: STATUS: COMPLETED $APHDR - - - - - - - - - - - - - - - - - - - - - - - - - - - - - - - - - - - - - - - - MEDICAL RECORD CYTOPATHOLOGY - - - - - - - - - - - - - - - - - - - - - - - - - - - - - - - - - - - - - - - - PATHOLOGY REPORT Accession No. [id number] - - - - - - - - - - - - - - - - - - - - - - - - - - - - - - - - - - - - - - - - $TEXT Submitted by: Date obtained: Jul 10, 2024 - - - - - - - - - - - - - - - - - - - - - - - - - - - - - - - - - - - - - - - - Specimen (Received Jul 11, 2024 09:46): CERVICAL PAP WITH HPV CO-TEST - - - - - - - - - - - - - - - - - - - - - - - - - - - - - - - - - - - - - - - - BRIEF CLINICAL HISTORY: 54 Y/O , WWE, IUD replacement - - - - - - - - - - - - - - - - - - - - - - - - - - - - - - - - - - - - - - - - PREOPERATIVE DIAGNOSIS: - - - - - - - - - - - - - - - - - - - - - - - - - - - - - - - - - - - - - - - - OPERATIVE FINDINGS: - - - - - - - - - - - - - - - - - - - - - - - - - - - - - - - - - - - - - - - - POSTOPERATIVE DIAGNOSIS: Surgeon/physician: KEENA SULLIVAN MD =-=-=-=-=-=-=-=-=-=-=-=-=- =-=-=-=-=-=-=-=-=-=-=-=-=- =-=-=-=-=-=-=-=-=-=-=-=-=- = - - - - - - - - - - - - - - - - - - - - - - - - - - - - - - - - - - - - - - - - PATHOLOGY REPORT Accession No. CY [id number] - - - - - - - - - - - - - - - - - - - - - - - - - - - - - - - - - - - - - - - - Screened by: CODIE SAL DESCRIPTION SPECIMEN RECEIVED IN [employer]UTION LABELED BARBIE GATES [phone]. ONE THINPREP PREPARED. A SPECIMEN ALIQUOT WITH AN APPROPRIATE ORDER FORM IS SUBMITTED TO [employer] FOR HPV TESTING. DIAGNOSIS: SPECIMEN TYPE: THINPREP LIQUID-BASED PREPARATION: MANUAL PAP TEST SCREENING SPECIMEN ADEQUACY: Satisfactory for evaluation Transformation zone component present INTERPRETATION/RESULT: Negative for Intraepithelial Lesion or Malignancy (NILM) EDUCATIONAL NOTE: Screening pap smears used to aid in detecting premalignant and malignant conditions of the cervix are not diagnostic procedures and should not be the sole means to detect cancer. False-positives and false-negatives occur. HPV RESULT: HPV mRNA E6/E7: NOT DETECTED METHODOLOGY: Bioinformatics Analyst Mediated Amplification DESCRIPTION: This assay detects E6/E7 viral messenger RNA (mRNA) from 14 high-risk HPV types (16,18,31,35,39,45,51,52,5 9,66,&68). TEST LOCATION: [place] [id number] Slip Bridge Operator: CECILIA Matson#: [id number] Please see [facility] for the original report. /ham/ CODIE SAL SONOGRAPHER Signed Jul 18, 2024@14:53 Performing Laboratory: Cytology Report [facility] By: [facility] CLIA# [id number] [address] [address] $FTR - - - - - - - - - - - - - - - - - - - - - - - - - - - - - - - - - - - - - - - - (End of report) CODIE SAL [facility] Date Jul 18, 2024 - - - - - - - - - - - - - - - - - - - - - - - - - - - - - - - - - - - - - - - - [facility] [place] STANDARD FORM 515 ID:[id number] SEX:F :1970 AGE: 54 LOC:[id number] PCP: Keena Sullivan MD /ham/ CODIE SAL SONOGRAPHER Signed: 07/18/2024 14:53 CODIE SAL [facility] Encounter Notes: All associated encounter notes This section contains the clinical notes associated to the Encounter. Date/Time Encounter Note(s) Provider Source Aug 09, 2024 10:56 AM NONVA NOTE: LOCAL TITLE: COMMUNITY CARE-CARE COORDINATION PLAN NOTE [facility] STANDARD TITLE: NONVA NOTE DATE OF NOTE: AUG 09, 2024@10:56 ENTRY DATE: AUG 09, 2024@10:56:33 AUTHOR: YARY FIERRO EXP COSIGNER: URGENCY: STATUS: COMPLETED Community Care Consult: [facility] Consult No: [id number] [facility] Referral #: Chief Complaint: 54 y/o F recommended to see urogynecology for possiblefemale sling for stress urinary incontinence which is not offered at Patient Admitted? No Level of Care Coordination Complex/Chronic Care Coordination was determined from: Chart Review Facility Community Care Office Contact Care Coordination Point of Contact: Yary Posey Services: Moderate Care Coordination Services Case Management, if appropriate Direct communications with interdisciplinary team Plan: Type of Service: Evaluation and Treatment possible female sling Patient History / Clinical Findings / Diagnosis (Co-Morbidities): pt had mixed urinary incontinence mainly stress but urgency as well Procedure (1): possible female sling /es/ YARY FIERRO BSN RN REGISTERED NURSE Signed: 08/09/2024 10:59 YARY FIERRO [facility]
--- OUTSIDE RECORDS SUMMARY | 2025-01-03 01:05 | XMS_ITS | Clinical Summary ---
Author Organization [facility] [employer] Address [address] [place] [address] Care Team Providers Care Exchange Underwriting Consultant Name Role Phone Hayley Leavitt INFORMATION RECEPTIONIST Primary Care Provider [phone] Source Comments [facility] [employer]non-owned Affiliates and Associated Physician Practices is amultiple site organization consisting of ambulatory clinics and hospital sitesin [place], [place], [place] and [place]. This disclosure is being madepursuant to the Care Everywhere program and may not contain all information available regarding this patient. Last updated 18.[facility] [employer] Allergies No known active allergies Medications * Be aware that medications may not be up to date on this document. Alwaysverify current medications with the patient. No known medications Social History Tobacco Use Types Packs/Day Years Used Date Smoking Tobacco: Never Smokeless Tobacco: Never Comments Unknown Sex and Gender Information Value Date Recorded Sex Assigned at Not on file Legal Sex Female 10:37 AM CDT Gender Identity Not on file Sexual Orientation Not on file Last Filed Vital Signs Vital Sign Reading Time Taken Comments Blood Pressure 110/70 01/26/2018 12:02 PM CDT Pulse 64 01/26/2018 12:02 PM CDT Temperature 36.8 C (98.3 F) 01/26/2018 12:02 PM CDT Respiratory Rate 16 01/26/2018 12:02 PM CDT Oxygen Saturation 98% 01/26/2018 12:02 PM CDT Inhaled Oxygen Concentration - - Weight 84.8 kg (187 lb) 01/26/2018 12:02 PM CDT Height 175.3 cm (5' 9) 01/26/2018 12:02 PM CDT Body Mass Index 27.62 01/26/2018 12:02 PM CDT Plan of Treatment Health Maintenance Due Date Last Done Comments COLOGUARD (AGES 45-75) - COL ON CA SCREENING 1970 COLON MONITORING 1971 COLONOSCOPY - COLON CA SCREENING 1971 CT COLONOGRAPHY - COLON CA SCREENING 1971 Colorectal Cancer Screening 1971 FIT - COLON CA SCREENING 1971 FLEX SIG - COLON CA SCREENING 1971 LIPID TESTING 1971 MAMMOGRAM 1971 HIV SCREENING 1986 HEPATITIS C SCREENING 02/10/1989 DTAP/TDAP/TD VACCINES (1 - Tdap) 1990 HEPATITIS B VACCINE (1 of 3 - 19+ 3-dose series) 1990 SCREENING FOR DIABETES 01/26/2018 PNEUMOCOCCAL VACCINE 50+ (1 of 1 - PCV) 2021 ZOSTER VACCINE (1 of 2) 2021 COVID-19 VACCINE (1 - 2023-2 5 season) 2024 DEPRESSION SCREENING 07/24/2024 INFLUENZA VACCINE (Season Ended) 2025 HIB VACCINE Aged Out No longer eligi ble based on patient's age to complete this topic HPV VACCINE Aged Out No longer eligi ble based on patient's age to complete this topic MENINGOCOCCAL (Group B) VACC INE SHARED DECISION-MAKING Aged Out No longer eligibl e based on patient's age to complete this topic MENINGOCOCCAL GROUPS A/C/Y/W VACCINE Aged Out No longer eligible b ased on patient's age to complete this topic [place] [address] [place] [id number] [facility] Care Teams Exchange Underwriting Consultant Relationship Specialty Start Date End Date Hayley Leavitt NP [address] [place] [id number] PCP - General 12/03/20
[2025-01-03 07:54] VITALS: BP 126/81; PULSE 70; RESP 20; TEMP 36.5; O2SAT 97
--- NOTE | 2025-01-03 09:08 | WPDHPUPDATE1 ---
History and Physical Update Update Date/Time: 01/03/25 09:08 History and Physical has been reviewed, including an updated exam of the patient. There are NO changes in the patient's condition. Risks, benefits, and alternatives have been discussed and questions answered. Patient agrees to proceed with procedure.
[2025-01-03] MEDS: LACTATED RINGERS 1,000 ML 30 ML IV CONT (09:10)
[2025-01-03 09:24] LABS: BEDSIDEPREGUCG Negative (Negative)
--- NOTE | 2025-01-03 09:28 | P.PNAN_ITS ---
Anes - Initial Pre Proc Eval Procedure: Operation Date: 01/03/25 09:45 Proposed Procedures p Urethral Sling - Romulo An MD Date/Time: 01/03/25 09:28 Surgeon: Romulo An MD Pre Op Diagnosis: stress incontinence Patient Data Age: 54 Gender: F Height: 1.75 m Weight: 105.2 kg Last Vital Signs Temp 36.5 C 01/03/25 07:54 Pulse 70 01/03/25 07:54 Resp 20 01/03/25 07:54 BP 126/81 01/03/25 07:54 Pulse Ox 97 01/03/25 07:54 O2 Del Method Room Air 01/03/25 07:54 Allergies Allergy/AdvReac Type Severity Reaction Status Date / Time No Known Allergies Allergy Verified 01/03/25 09:03 Home Medications ?Medication ?Instructions ?Recorded ?Confirmed ?Type No Home Medications 12/26/24 12/26/24 History Laboratory Tests 01/03/25 07:54 POC Urine HCG, Qual Negative (Negative) Patient hx anesthesia problems: none Family hx anesthesia problems: none Results Review: All pre-operative results and documents have been reviewed as part of the pre- operative evaluation. [facility] Social History Social History Smoking status: Never smoker Drinks per week: 1 Substance use: never Living arrangements: alone Anes - Eval Final PreProcedure Day of Procedure 01/03/25 09:28 Patient weight: obese Heart: regular rate and rhythm Lungs: clear to auscultation Airway: Mallampati scale class II Neurological: alert and oriented Last oral intake: >/= 8 hours ASA classification: II Emergent: no Anesthetic plan: proceed Anesthesia type and monitoring: general GIVS and LMA and standard monitoring Results Review: All pre-operative results and documents have been reviewed as part of the pre- operative evaluation. Informed Consent: The patient's anesthetic plan and its attendant risks and benefits were discussed with the patient/family/POA. Questions were solicited and answers provided to the satisfaction of the patient/family/POA.
[2025-01-03] MEDS: ceFAZolin 2 GM/D5W 50 ML 2 GM/50 ML BAG IVPB (10:48)
[2025-01-03] MEDS: BUPIVACAINE/EPINEPHRINE 0.5% 50 ML VIAL 30 ML INFILTRATE (11:04)
[2025-01-03 11:18] VITALS: BP 108/64; PULSE 69; RESP 16
[2025-01-03 11:48] VITALS: BP 108/64; PULSE 69; RESP 18
[2025-01-03 12:18] VITALS: BP 113/93; PULSE 63; RESP 18
--- NOTE | 2025-01-06 10:22 | W.PM.PROC2 ---
Procedure Note - Detailed Date of Procedure 01/06/25 Pre-op Diagnosis stress incontinence Post-op Diagnosis Same Procedure Performed mid urethral sling cystoscopy Surgeon Romulo An MD Anesthesia General Indications This is a female with confirm stress urinary incontinence. She desires surgical correction. She understands the risks of bleeding, infection, injury to the urinary tract, vaginal mesh extrusion, urinary tract mesh erosion, obstructive voiding requiring a secondary procedure, hip and leg pain, dyspareunia, inability to improve overactive bladder symptoms. She agrees to proceed. Description of Procedure She was correctly identified. Informed consent obtained. She was brought the operating room. She was given appropriate anesthesia. She was given appropriate perioperative antibiotics. A time-out performed. I marked out the site of the inner thigh incisions. I anesthetized the skin and made those incisions. I anesthetized the anterior vaginal wall over the mid urethra. I made a 1 cm incision. I dissected out laterally taking great care not to injure the refilled vaginal wall. I passed the helical trocars. First on the left. Then on the right. I did this from the thigh incision towards the vaginal incision. The sling was connected to the trocars and brought out through the thigh incision. I tensioned the sling appropriately. I cut and the plastic sheaths. I then closed the incision with 2 0 Vicryl. On cystoscopy there is no tumors or surgical artifact. There was no surgical artifact in the urethra. I cut the excess sling material. Close incisions with glue. She was awakened and transferred to the PACU in stable condition. Implants Urethral sling Drains No Packing No Pathology None sent Complications No immediate complications Condition Stable Disposition PACU
== END 2025-01-03 12:27 | disposition home or self-care (01) ==
PROVIDERS: Visit Provider Urology
PROC: (CPT 57288; principal; 2025-01-03 09:45)
DX: N39.3 Stress incontinence (female) (male) (principal); E66.9 Obesity, unspecified; Z68.34 Body mass index [BMI] 34.0-34.9, adult
CPT/HCPCS: 57288; C1771; J0690; J2003; J2250; J2704; J3010; J7120